=== PATIENT | female | born 1965 | race Caucasian/White ===

== ENCOUNTER 2025-01-22 21:22 | Inpatient (IN) | payer MEDICAID, OTHER ==
[~2025-01-22] VITALS: Ht 160 cm; Wt 54.9 kg
[2025-01-23 00:23] LABS: *BILIRUBIN,URIN NEGATIVE (NEGATIVE); *BLOOD, URINE 2+ (NEGATIVE); *CLARITY,URINE CLEAR (CLEAR); *COLOR,URINE YELLOW (YELLOW); *KETONES,URINE TRACE (NEGATIVE); *PROTEIN,URINE NEGATIVE (NEGATIVE); *UROBILINOGEN,URINE 0.2 E.U./dl (NORMAL); LEUKOCYTE ESTERASE ,URINE 2+ (NEGATIVE); NITRITE, URINE NEGATIVE (NEGATIVE); UGLUCOSE NEGATIVE (NEGATIVE)
[2025-01-23 00:26] LABS: *AMPHETAMINE, URINE NEGATIVE (NEGATIVE); *BARBITURATE, URINE NEGATIVE (NEGATIVE); *BENZODIAZEPINE, URINE NEGATIVE (NEGATIVE); *CANNABINOID, URINE NEGATIVE (NEGATIVE); *COCCAINE, URINE NEGATIVE (NEGATIVE); *OPIATE, URINE NEGATIVE (NEGATIVE); *PHENCYCLIDINE SCREEN,URINE NEGATIVE (NEGATIVE); FENTANYL, URINE NEGATIVE (NEGATIVE)
[2025-01-23 00:26] LABS: BASOPHILS % (AUTO) 0.4 % (0.0-2.0); EOSINOPHILS # (AUTO) 0.1 K/uL (0.0-0.7); EOSINOPHILS % (AUTO) 0.8 % (0.0-7.0); HEMATOCRIT 36.2 % (31.2-41.9); HEMOGLOBIN 12.5 g/dL (10.9-14.3); LYMPHOCYTES # (AUTO) 2.9 K/uL (0.8-4.8); LYMPHOCYTES % (AUTO) 37.9 % (20.5-51.5); MEAN CORPUSCULAR HEMOGLOBIN 29.6 uug (24.7-32.8); MEAN CORPUSCULAR HGB CONC 34 g/dL (32.3-35.6); MONOCYTES # (AUTO) 0.5 K/uL (0.1-1.30); MONOCYTES % (AUTO) 6.5 % (0.0-11.0); NEUTROPHILS # (AUTO) 4.1 K/uL (1.8-8.9); NEUTROPHILS % (AUTO) 54.4 % (38.5-71.5); PLATELET COUNT (AUTO) 292 K/uL (179-408); RED BLOOD CELL COUNT(AUTO) 4.21 MIL/uL (3.63-4.92); RED CELL DISTRIBUTION WIDTH 13.5 % (12.3-17.7); WHITE BLOOD COUNT (AUTO) 7.6 K/uL (3.8-11.8)
[2025-01-23 00:29] LABS: DIFFERENTIAL COMMENT 1
[2025-01-23 00:40] LABS: CARBON DIOXIDE 29 mmol/L (21-32); CHLORIDE 99 mmol/L (98-107); CREATININE 0.9 mg/dL (0.6-1.3); GLUCOSE 155 mg/dL (74-106); POTASSIUM 3.6 mmol/L (3.5-5.1); SODIUM SERUM 136 mmol/L (136-145); UREA NITROGEN, BLOOD 11 mg/dL (7-18)
[2025-01-23 00:44] LABS: ALANINE AMINOTRANSFERASE 19 U/L (14-59); ALBUMIN 3.6 g/dL (3.4-5.0); ALKALINE PHOSPHATASE 82 U/L (50-136); ASPARTATE AMINOTRANSFERASE 21 U/L (15-37); BILIRUBIN,TOTAL 0.5 mg/dL (0.2-1.0); ETHANOL < 3 MG/DL (0-10); TOTAL PROTEIN, SERUM 7.2 g/dL (6.4-8.2)
[2025-01-23 00:48] LABS: ACETAMINOPHEN < 10.0 ug/mL (10-30)
[2025-01-23 00:57] LABS: BACTERIA,URINE FEW /HPF (NONE SEEN); SQUAMOUS EPITHELIAL CELL,UR FEW /HPF (NONE SEEN)
[2025-01-23] MEDS: NITROFURANTOIN/NITROFURAN MAC 100 MG CAPSULE PO ONE (02:15)
[2025-01-23] MEDS ORDERED: NITROFURANTOIN/NITROFURAN MAC 100 MG CAPSULE PO ONE (03:46)
[2025-01-23] MEDS ORDERED: LORAZEPAM 2 MG/1 ML VIAL ONE (13:35)
[2025-01-23] MEDS ORDERED: HALOPERIDOL LACTATE 5 MG/1 ML VIAL ONE (13:35)
[2025-01-23] MEDS ORDERED: diphenhydrAMINE 50 MG/1 ML VIAL ONE (13:35)
[2025-01-23] MEDS: diphenhydrAMINE 50 MG/1 ML VIAL IM ONE (13:36)
[2025-01-23] MEDS: HALOPERIDOL LACTATE 5 MG/1 ML VIAL IM ONE (13:36)
[2025-01-23] MEDS: LORAZEPAM 2 MG/1 ML VIAL IM ONE (13:36)
[2025-01-24] MEDS ORDERED: OLANZAPINE ZYDIS 5 MG TAB.RAPDIS ONE ×2 (15:13→15:45)
[2025-01-24] MEDS ORDERED: OLANZAPINE 5 MG TABLET ONE (15:44)
[2025-01-24] MEDS: MISCELLANEOUS MED PO ONE (15:45)
[2025-01-24 18:27] VITALS: BP 117/72; TEMP 98; O2SAT 98
[2025-01-24] MEDS ORDERED: BLOOD SUGAR DIAGNOSTIC 1 EACH STRIP VI ONE ×2 (18:30→19:00)
[2025-01-24] MEDS ORDERED: LORAZEPAM 0.5 MG TABLET PO PRN ×2 (19:00)
[2025-01-24] MEDS ORDERED: MAG HYDROX/AL HYDROX/SIMETH 30 ML LIQUID UDC PO PRN (19:00)
[2025-01-24] MEDS ORDERED: ACETAMINOPHEN 325 MG TABLET PO PRN (19:00)
[2025-01-24] MEDS ORDERED: TEMAZEPAM 7.5 MG CAPSULE PO PRN (19:00)
[2025-01-24] MEDS ORDERED: MAGNESIUM HYDROXIDE 30 ML LIQUID UDC PO PRN (19:00)
[2025-01-24 19:50] VITALS: BP 95/69; TEMP 98.1; O2SAT 95
[2025-01-24] MEDS: TEMAZEPAM 7.5 MG CAPSULE PO PRN (20:56)
[2025-01-25 08:02] VITALS: BP 104/47; TEMP 97.6; O2SAT 99
[2025-01-25] MEDS: NITROFURANTOIN/NITROFURAN MAC 100 MG CAPSULE PO SCH (10:40)
[2025-01-25 15:43] VITALS: BP 127/86; TEMP 98; O2SAT 98
[2025-01-25 20:00] VITALS: BP 108/72; TEMP 98.2; O2SAT 96
[2025-01-25] MEDS: MIRTAZAPINE 15 MG TABLET PO SCH (20:42)
[2025-01-26 07:28] LABS: BILIRUBIN,DIRECT 0.1 mg/dL (0.0-0.2); BILIRUBIN,TOTAL 0.4 mg/dL (0.2-1.0); CALCIUM 9.5 mg/dL (8.5-10.1); CREATININE 0.9 mg/dL (0.6-1.3); POTASSIUM 4.5 mmol/L (3.5-5.1); TOTAL PROTEIN, SERUM 8.2 g/dL (6.4-8.2)
[2025-01-26 08:11] VITALS: BP 131/61; TEMP 98.2; O2SAT 96
[2025-01-26 16:16] VITALS: BP 132/88; TEMP 98.5; O2SAT 100
[2025-01-26] MEDS: LORAZEPAM 2 MG/1 ML VIAL IM ONE (18:45)
[2025-01-26 20:03] VITALS: BP 124/66; TEMP 98.1; O2SAT 98
[2025-01-26] MEDS: MIRTAZAPINE 15 MG TABLET PO SCH (20:57)
[2025-01-27] MEDS: LORAZEPAM 0.5 MG TABLET PO PRN (13:09)
[2025-01-27 16:28] VITALS: BP 116/83; TEMP 98.5; O2SAT 100
[2025-01-27 20:04] VITALS: BP 131/77; TEMP 98.1; O2SAT 96
[2025-01-28 07:40] VITALS: BP 118/79; TEMP 98; O2SAT 98
[2025-01-28] MEDS: SERTRALINE HCL 50 MG TABLET PO SCH (08:51)
[2025-01-28 15:04] VITALS: BP 121/74; TEMP 98; O2SAT 100
[2025-01-28 19:50] VITALS: BP 113/75; TEMP 98; O2SAT 98
[2025-01-28] MEDS ORDERED: NITROFURANTOIN/NITROFURAN MAC 100 MG CAPSULE PO SCH (21:00)
[2025-01-29 08:16] VITALS: BP 123/58; TEMP 98; O2SAT 100
[2025-01-29 16:15] VITALS: BP 125/67; TEMP 98.1; O2SAT 96
[2025-01-29] MEDS: ENSURE ENLIVE (VAN) 240 ML LIQUID PO SCH (17:24)
[2025-01-29 20:00] VITALS: BP 134/80; TEMP 97.8; O2SAT 96
[2025-01-30 08:14] VITALS: BP 131/89; TEMP 98.5; O2SAT 99
[2025-01-30 16:39] VITALS: BP 133/71; TEMP 98; O2SAT 100
[2025-01-30 19:51] VITALS: BP 136/82; TEMP 98.6; O2SAT 100
[2025-01-30] MEDS: MIRTAZAPINE 15 MG TABLET PO SCH (20:52)
[2025-01-31 08:04] VITALS: BP 111/68; TEMP 98; O2SAT 98
[2025-01-31 15:23] VITALS: BP 112/69; TEMP 98; O2SAT 98
[2025-01-31] MEDS ORDERED: ATORVASTATIN 20 MG TABLET PO SCH (21:00)
== END 2025-01-31 18:11 | DRG 754 ==
LOC: ER 21:29 → GPS 01-24 17:31
PROVIDERS: ADMIT Psychiatry & Neurology Psychosomatic Medicine; ATTEND Nurse Practitioner Family
DX: F32.9 Major depressive disorder, single episode, unspecified (principal); F03.911 Unspecified dementia, unspecified severity, with agitation; I69.922 Dysarthria following unspecified cerebrovascular disease; E78.5 Hyperlipidemia, unspecified; F03.92 Unspecified dementia, unspecified severity, with psychotic disturbance
CPT/HCPCS: 36415; 70450; 71045; 85025; 87086; A4606; A4663; G0480; J1200; J1630; J2060